=== PATIENT | female | born 1995 ===

== ENCOUNTER 2019-12-18 16:38 | Emergency (ER) | payer OTHER ==
[~2019-12-18] VITALS: Ht 149.9 cm; Wt 40.4 kg
[2019-12-18] MEDS ORDERED: VISTARIL50 MG PO (21:09)
== END 2019-12-18 21:13 | disposition home or self-care (01) ==
LOC: ER 16:38
DX: F41.0 Panic disorder [episodic paroxysmal anxiety] (principal); Z20.828 Contact with and (suspected) exposure to other viral communicable diseases